=== PATIENT | male | born 1980 | race American Indian/Alaskan Native ===

== ENCOUNTER 2017-03-09 14:18 | Emergency (ER) | payer OTHER ==
[2017-03-09 14:23] VITALS: BMI 23.3
[2017-03-09 14:26] VITALS: BP 150/92; PULSE 74; RESP 18; TEMP 97.9; O2SAT 100
--- NOTE | 2017-03-09 15:23 | C.PDOC ---
History Of Present Illness 36 year old male presents to ED requesting clearance note for work. Pt states that he injured his left hand 4 days ago after landing on his left hand while ice skating. Pt states that he applied ice to the affected area, and applied connie bandage with improvement of pain. Pt states that he feels better, and denies any complaints at this time. 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 Time Seen by Provider: 03/09/17 14:39 Chief Complaint (Nursing): Finger,Hand,&Wrist History Per: Patient History/Exam Limitations: no limitations Onset/Duration Of Symptoms: Days Current Symptoms Are (Timing): Gone Severity: None Pain Scale Rating Of: 0 Exacerbating Factor(s): Nothing Recent travel outside of the [place]: No Additional History Per: Patient Past Medical History Reviewed: Historical Data, Nursing Documentation, Vital Signs Vital Signs: Last Vital Signs Temp 97.9 F 03/09/17 14:23 Pulse 74 03/09/17 14:23 Resp 18 03/09/17 14:23 BP 150/92 H 03/09/17 14:23 Pulse Ox 100 03/09/17 15:47 Family History: States: Unknown Family Hx - Social History Hx Alcohol Use: No Hx Substance Use: No - Immunization History Hx Tetanus Toxoid Vaccination: No Hx Influenza Vaccination: No Hx Pneumococcal Vaccination: No Review Of Systems Except As Marked, All Systems Reviewed And Found Negative. Constitutional: Negative for: Fever, Chills Musculoskeletal: Negative for: Hand Pain Skin: Negative for: Rash, Bruising Neurological: Negative for: Weakness, Numbness Physical Exam - Physical Exam Appears: Non-toxic, No Acute Distress Skin: Normal Color, Warm, Dry, No Ecchymosis Head: Atraumatic, Normacephalic Eye(s): bilateral: Normal Inspection Extremity: Normal ROM (FROM of left hand), No Tenderness, Capillary Refill ( less than 2 seconds), No Deformity, No Swelling Pulses: Left Radial: Normal, Right Radial: Normal Neurological/Psych: Oriented x3, Normal Speech, Normal Motor, Normal Sensation ED Course And Treatment O2 Sat by Pulse Oximetry: 100 (RA) Pulse Ox Interpretation: Normal Progress Note: Patient was instructed to follow up with physician/clinic. Disposition Counseled Patient/Family Regarding: Diagnosis, Need For Followup - Disposition Disposition: HOME/ ROUTINE Disposition Time: 15:19 Condition: STABLE Additional Instructions: Please follow up with PMD Return to ER if worse Forms: [facility] (Puerto Rican), Work Excuse - Clinical Impression Clinical Impression: Encounter for medical assessment - PA / MARKETING DEVELOPMENT REPRESENTATIVE / Resident Statement MD/DO has reviewed & agrees with the documentation as recorded. - Scribe Statement The provider has reviewed the documentation as recorded by the Meraryibe Jeny Elizabeth All medical record entries made by the Meraryiblele were at my direction and personally dictated by me. I have reviewed the chart and agree that the record accurately reflects my personal performance of the history, physical exam, medical decision making, and the department course for this patient. I have also personally directed, reviewed, and agree with the discharge instructions and disposition.
== END 2017-03-09 15:29 | disposition home or self-care (01) ==
LOC: C.ER 14:18
DX: Z04.8 Encounter for examination and observation for other specified reasons (principal)